=== PATIENT | female | born 1995 | race Two or more races ===

== ENCOUNTER 2018-02-08 08:23 | Emergency (ER) | payer MEDICAID, OTHER ==
[2018-02-08] MEDS ORDERED: KETOROLAC 30 MG/1 ML SDV IM ONE (08:51)
[2018-02-08] MEDS ORDERED: DEXAMETHASONE 4 MG TAB PO ONE (08:52)
--- NOTE | 2018-02-08 08:59 | EDPHY ---
H & P Time Seen by Provider: 02/08/18 08:39 HPI/ROS: CHIEF COMPLAINT: Headache, sore throat, vomiting HISTORY OF PRESENT ILLNESS: 22-year-old female presents emergency department reporting that she has had headache for the last 4 days. Described as a frontal headache, better when she is in the dark with her eyes closed, worse when she is upright and moving. 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 No congestion symptoms, runny nose, or cough at that time. However yesterday she developed a sore throat, fevers and chills last night, and vomiting x2. Patient has used Excedrin with minimal relief of her headache pain. She took NyQuil last night for her fever and sore throat. No recent head trauma, no complaints of neck pain, no history of migraine headaches. No chest pain or shortness of breath, no cough, no palpitations, no lightheadedness, fainting, or diarrhea. No urinary complaints. REVIEW OF SYSTEMS: A comprehensive 10 system review of systems was reviewed and is otherwise negative aside from elements mentioned in the history of present illness and medical decision making. PAST MEDICAL HISTORY: Patient denies. SOCIAL HISTORY: Works at a daycare center. Exposure to strep in hand-foot- mouth disease. VITAL SIGNS: see nurse's notes. Heart rate 110. Afebrile. GENERAL: Well-developed, well-nourished, complaining of moderate headache. HEENT: Atraumatic Eyes: PERRL, EOMI, no conjunctival injection. No sinus tenderness to percussion. Ears: Left TM somewhat retracted, right TM clear bilaterally. Nose: No discharge. Mouth: moist mucous membranes. No lesions. Pharynx: Tonsillar erythema, slight swelling, no exudates , no abscess. Uvula is midline. NECK: Supple, no adenopathy, no meningismus, no tenderness. Negative Kernig's and Brudzinski's. LUNGS: Clear to auscultation bilaterally, no wheezes, rhonchi or rales. CARDIAC: Tachycardic but regular, no rubs, murmurs or gallops. ABDOMEN: Soft, nontender, bowel sounds normal. BACK: No CVA tenderness. EXTREMITIES: Normal, no edema, FROM. NEURO: Alert and oriented, grossly nonfocal. SKIN: Warm and dry, no rash. PSYCHIATRIC: Normal mentation, no agitation. Smoking Status: Never smoked Constitutional: Initial Vital Signs Temperature (C) 37.1 C 02/08/18 08:42 Heart Rate 112 H 02/08/18 08:42 Respiratory Rate 18 02/08/18 08:42 Blood Pressure 127/82 H 02/08/18 08:42 O2 Sat (%) 96 02/08/18 08:42 O2 Delivery Mode Room Air Allergies/Adverse Reactions: No Known Allergies Allergy (Verified 02/08/18 08:42) Home Medications: Medication Instructions Recorded NO HOME MEDS 10/11/09 Amoxicillin Trihydrate 500 mg PO TID 7 Days cap 02/08/18 [Amoxicillin] Ondansetron Odt [Zofran Odt 4 mg 4 mg PO Q6 PRN #8 tab 02/08/18 (RX)] Medical Decision Making ED Course/Re-evaluation: Rapid strep screen sent. IM Toradol administered for headache pain. Decadron 8 mg for headache and sore throat. Rapid strep screen is positive. Patient given amoxicillin prescription. Please see the discharge instructions. Differential Diagnosis: Differential diagnosis for the patient's sore throat and headache was considered including but not limited to viral pharyngitis, bacterial pharyngitis , tonsillitis, tonsillar abscess, peritonsillar abscess, viral syndrome, sinusitis, meningitis. - Data Points Medications Given: Discontinued Medications Amoxicillin (Amoxicillin) 500 mg PO EDNOW ONE PRN Reason: Protocol Stop: 02/08/18 09:15 Last Admin: 02/08/18 09:28 Dose: 500 mg Dexamethasone (Decadron) 8 mg PO EDNOW ONE Stop: 02/08/18 08:53 Last Admin: 02/08/18 09:01 Dose: 8 mg Ketorolac Tromethamine (Toradol) 60 mg IM EDNOW ONE Stop: 02/08/18 08:52 Last Admin: 02/08/18 09:01 Dose: 60 mg Point of Care Test Results: Strep Strep Throat Swab Collection 02/08/18 Date Strep Throat Swab Swab 08:55 Collection Time Strep Result Detected Departure - Departure Disposition: Home, Routine, Self-Care Clinical Impression: Strep throat Headache Qualifiers: Headache type: other headache syndrome Qualified Code(s): G44.89 - Other headache syndrome Condition: Good Instructions: Strep Throat (ED), Acute Headache (ED) Additional Instructions: Your rapid strep screen is positive. Please take antibiotics as directed. For your sore throat, I suggest ibuprofen 400-600 mg every 6-8 hours to help with pain and swelling. Salt water gargles and throat lozengers will also be helpful. You can also take Tylenol 650-1000 mg for throat pain and headache. For your headache, I suggest Tylenol and ibuprofen. If you have nasal congestion, I suggest Flonase which is available over the counter as well as an oral decongestant such as Sudafed. Please follow up with your primary care physician if you're not improving as expected. Please get plenty of rest and drink plenty of fluid. Referrals: [facility],. [Clinic] - As per Instructions (Follow-up at [facility] seen if you're not improving as expected.) Prescriptions: Amoxicillin Trihydrate [Amoxicillin] 500 mg PO TID 7 Days cap Ondansetron Odt [Zofran Odt 4 mg (RX)] 4 mg PO Q6 PRN #8 tab PRN Reason: Nausea
[2018-02-08 09:34] VITALS: BP 124/69
== END 2018-02-08 09:34 | disposition home or self-care (01) ==
LOC: CED 08:23
DX: J02.0 Streptococcal pharyngitis (principal); G44.89 Other headache syndrome
CPT/HCPCS: J1885